=== PATIENT | male | born 1975 | race Caucasian/White ===

== ENCOUNTER 2016-09-27 03:29 | Emergency (ER) | payer MEDICAID ==
[~2016-09-27] VITALS: Ht 188 cm; Wt 140.6 kg
[2016-09-27 04:06] LABS: Urine RBC None Seen /hpf (0 - 3)
[2016-09-27 04:10] LABS: Basophils # (auto) 0 uL; Basophils % (auto) 0.3 % (0.0-2.0); Eosinophils # (auto) 0.1 uL; Eosinophils % (auto) 0.9 % (0.0-7.0); Hematocrit 45.2 % (41.0-53.0); Hemoglobin 15.5 g/dL (13.5-17.5); Lymphocytes # (auto) 2.3 uL; Lymphocytes % (auto) 22.9 % (10.0-50.0); Mean Corpuscular Hemoglobin 29.8 pg (28.0-32.0); Mean Corpuscular Hgb Conc. 34.2 g/dL (32.0-36.0); Mean Corpuscular Volume 87.2 fL (80.0-100.0); Monocytes # (auto) 0.9 uL; Monocytes % (auto) 8.6 % (0.0-12.0); Neutrophils # (auto) 6.9 uL; Neutrophils % (auto) 67.3 % (37.0-80.0); Platelet Count (auto) 240 10^3/uL (140-450); Red Cell Distribution Width 13.6 % (11.6-16.0); White Blood Cell 10.2 10^3/uL (4.4-10.8)
[2016-09-27 04:14] LABS: Urine Bilirubin Negative (Negative); Urine Blood Negative /uL (Negative); Urine Color Yellow (Yellow); Urine Glucose Normal (Normal); Urine Mucus FEW (None Seen); Urine Nitrite Negative (Negative); Urine Squamous Epithelial Cell FEW /hpf (<5); Urine Urobilinogen Normal (Negative); Urine pH 5.5 (5.0-8.0)
[2016-09-27] MEDS ORDERED: LORazepam 0.5 MG TAB PO ONE (04:15)
[2016-09-27] MEDS ORDERED: HYDROcodone-ACET 5/325MG TAB PO ONE (04:15)
[2016-09-27 04:20] LABS: Urine Ketone 2+ (Negative)
[2016-09-27] MEDS ORDERED: PHENAZOPYRIDINE HCL 100 MG TAB PO ONE (04:30)
[2016-09-27 04:36] LABS: Albumin 3.8 g/dL (3.4-5.0); BUN/Creatinine Ratio 11.5; Calcium 8.9 mg/dL (8.5-10.1); Potassium 3.5 mmol/L (3.5-5.1); Total Protein 7.7 g/dL (6.4-8.2)
[2016-09-27] MEDS ORDERED: CIPROFLOXACIN HCL 500 MG TAB PO ONE (05:00)
[2016-09-27] MEDS ORDERED: NITROFURANTOIN (MONO) 100 mg CAP PO ONE (06:00)
[2016-09-27 06:22] VITALS: BP 130/75
== END 2016-09-27 06:26 | disposition home or self-care (01) ==
LOC: ER 03:31
DX: N39.0 Urinary tract infection, site not specified (principal)
CPT/HCPCS: 36415; 51702; 80053; 81001; 85025